=== PATIENT | female | born 1965 | race Caucasian/White ===

== ENCOUNTER 2020-07-03 07:18 | Outpatient (CLI) | payer BC | END 2020-07-03 07:19 | disposition home or self-care (01) | LOC: NM 07:18 | PROVIDERS: ATTEND Student in an Organized Health Care Education/Training Program | DX: R10.11 Right upper quadrant pain (principal) | CPT/HCPCS: 78227; A9537 ==

== ENCOUNTER 2021-09-24 12:02 | Outpatient (CLI) | payer BC | END 2021-09-24 12:03 | disposition home or self-care (01) | LOC: BICMAMMO 12:02 | PROVIDERS: ATTEND Student in an Organized Health Care Education/Training Program | DX: Z12.31 Encounter for screening mammogram for malignant neoplasm of breast (principal); Z80.3 Family history of malignant neoplasm of breast | CPT/HCPCS: 77063; 77067 ==

== ENCOUNTER 2021-11-15 08:51 | Emergency (ER) | payer BC ==
[2021-11-15 09:23] LABS: #Basophils 0.1 thou/uL (0.0-0.2); #Eosinphils 0.1 thou/uL (0.0-0.7); #Lymphocytes 1.4 thou/uL (1.20-3.40); #Monocytes 0.4 thou/uL (0.11-0.59); #Neutrophils 4.2 thou/uL (1.40-6.50); %Basophils 1.3 % (0.0-1.0); %Eosinophils 1.8 % (0.0-10.0); %Lymphocytes 22.9 % (21.0-51.0); %Monocytes 6.2 % (0.0-10.0); %Neutrophils 67.6 % (42.0-75.0); Hemoglobin 11.2 g/dL (12.0-16.0); Mean Corpuscular HGB CONC 33.7 g/dL (32.0-36.0); Mean Corpuscular Hemoglobin 32.6 pg (27.0-31.0); Mean Corpuscular Volume 96.5 fL (78.0-98.0); Mean Platelet Volume 7.1 fL (7.4-10.4); Platelet Count 485 thou/uL (130-400); RBC Distribution Width 11.8 % (11.5-14.5); Red Blood Cell (RBC) Count 3.45 mill/uL (4.20-5.40); White Blood Cell (WBC) Count 6.3 thou/uL (4.8-10.8)
[2021-11-15] MEDS ORDERED: Ondansetron PF 4 MG/2 ML Vial ONE (09:35)
[2021-11-15] MEDS ORDERED: Morphine 4 MG/ML VIAL ONE (09:36)
[2021-11-15 09:42] LABS: ALT (SGPT) 29 U/L (8-55); AST (SGOT) 17 U/L (5-34); Albumin 4.6 g/dL (3.5-5.0); Alkaline Phosphatase 121 U/L (40-110); Anion Gap 19 mmol/L (10-20); BUN (Urea Nitrogen) 23 mg/dL (9.8-20.1); Bilirubin, Total 0.4 mg/dL (0.2-1.2); Calc. Creatinine Clearance 0 mL/min (70-130); Calcium 9.7 mg/dL (7.8-10.44); Carbon Dioxide 24 mmol/L (22-29); Chloride 99 mmol/L (98-107); Estimated GFR 41; Globulin 2.8 g/dL (2.4-3.5); Glucose 100 mg/dL (70-105); Lipase 39 U/L (8-78); Potassium 3.2 mmol/L (3.5-5.1); Protein, Total 7.4 g/dL (6.0-8.3); Sodium 139 mmol/L (136-145)
[2021-11-15] MEDS ORDERED: Iopamidol-370 76% 500 ML 1 ML ONE (11:26)
== END 2021-11-15 12:05 | disposition home or self-care (01) ==
LOC: ERS 08:51
DX: K52.9 Noninfective gastroenteritis and colitis, unspecified (principal); I10 Essential (primary) hypertension
CPT/HCPCS: 36415; 74177; 80053; 83690; 84443; 85025; 96374; 96375; J2270; J2405; Q9967

== ENCOUNTER 2022-01-04 12:06 | Day surgery (SDC) | payer BC ==
[2021-12-31 14:50] VITALS: BMI 21.1
[2022-01-04] MEDS ORDERED: Lidocaine 2% PF 5 ML VIAL ONE (12:37)
[2022-01-04] MEDS ORDERED: Sodium Bicarbonate 2.5 MEQ/5 ML VIAL ONE (12:37)
== END 2022-01-04 13:30 | disposition home or self-care (01) ==
LOC: ULT 12:06
PROVIDERS: ATTEND Otolaryngology Plastic Surgery within the Head & Neck
PROC: 0GBH3ZX Excision of Right Thyroid Gland Lobe, Percutaneous Approach, Diagnostic (ICD-10-PCS; principal; 2022-01-04)
DX: E04.1 Nontoxic single thyroid nodule (principal); D64.9 Anemia, unspecified; I10 Essential (primary) hypertension; Z79.899 Other long term (current) drug therapy
CPT/HCPCS: 10005; 88173; J2001

== ENCOUNTER 2022-02-14 11:11 | Outpatient (CLI) | payer BC | END 2022-02-14 11:12 | disposition home or self-care (01) | LOC: LABBT 11:11 | PROVIDERS: ATTEND Otolaryngology Plastic Surgery within the Head & Neck | DX: Z01.812 Encounter for preprocedural laboratory examination (principal); E04.1 Nontoxic single thyroid nodule | CPT/HCPCS: 85014 ==

== ENCOUNTER 2022-02-16 12:02 | Day surgery (SDC) | payer BC ==
[2022-02-14 15:53] VITALS: BMI 20.9
[2022-02-16] MEDS ORDERED: Propofol 500 MG/50 ML VIAL ONE (12:29)
[2022-02-16] MEDS ORDERED: fentaNYL PF 100 MCG/2 ML SYRINGE ONE ×2 (12:29→13:30)
[2022-02-16] MEDS ORDERED: Lidocaine 1% (PF) 30 ML VIAL ONE (12:33)
[2022-02-16] MEDS ORDERED: EPINEPHrine 1 MG/ML AMP ONE (12:34)
[2022-02-16] MEDS ORDERED: Ondansetron PF 4 MG/2 ML Vial ONE (13:14)
[2022-02-16] MEDS ORDERED: PROPOFOL 200 MG/20 ML VIAL ONE (13:14)
[2022-02-16] MEDS ORDERED: Phenylephrine 10 MG/ML VIAL ONE (13:14)
[2022-02-16] MEDS ORDERED: Dexamethasone 20 MG/5 ML VIAL ONE (13:14)
[2022-02-16] MEDS ORDERED: FENTANYL 50 MCG/ML 1 ML VIAL ONE ×5 (16:02→16:46)
[2022-02-16 16:21] LABS: Hemoglobin 10.8 g/dL (12.0-16.0)
[2022-02-16] MEDS ORDERED: HYDROcodone/Acetaminophen 5/325 mg Tablet ONE (17:35)
== END 2022-02-16 17:50 | disposition home or self-care (01) ==
LOC: SDC 12:02
PROVIDERS: ATTEND Otolaryngology Plastic Surgery within the Head & Neck
PROC: 0GTH0ZZ Resection of Right Thyroid Gland Lobe, Open Approach (ICD-10-PCS; principal; 2022-02-16)
PROC: 0GTJ0ZZ Resection of Thyroid Gland Isthmus, Open Approach (ICD-10-PCS; principal; 2022-02-16)
DX: E04.1 Nontoxic single thyroid nodule (principal); R13.10 Dysphagia, unspecified; I10 Essential (primary) hypertension; Z79.899 Other long term (current) drug therapy
CPT/HCPCS: 36415; 85014; 85018; 88307; C1713; C1776; J0171; J1100; J2001; J2370; J2405; J2704; J3010

== ENCOUNTER 2023-03-05 04:07 | Inpatient (IN) | payer OTHER, BC ==
[2023-03-05] MEDS ORDERED: Ondansetron PF 4 MG/2 ML Vial ONE ×2 (04:15→04:28)
[2023-03-05 04:29] LABS: #Basophils 0.1 thou/uL (0.0-0.2); #Eosinphils 0.1 thou/uL (0.0-0.7); #Monocytes 0.4 thou/uL (0.11-0.59); %Basophils 0.8 % (0.0-1.0); %Eosinophils 1.5 % (0.0-10.0); %Lymphocytes 26.7 % (21.0-51.0); %Monocytes 6.8 % (0.0-10.0); %Neutrophils 61.3 % (42.0-75.0); Hematocrit 39.3 % (36.0-47.0); Hemoglobin 13.2 g/dL (12.0-16.0); Mean Corpuscular HGB CONC 33.6 g/dL (32.0-36.0); Mean Corpuscular Hemoglobin 32.1 pg (27.0-31.0); Mean Corpuscular Volume 95.6 fl (78.0-98.0); Mean Platelet Volume 10.2 fL (7.4-10.4); Platelet Count 270 10x3/uL (130-400); RBC Distribution Width 12.4 % (11.5-14.5); Red Blood Cell (RBC) Count 4.11 mill/uL (4.20-5.40); White Blood Cell (WBC) Count 6.5 10x3/uL (4.8-10.8)
[2023-03-05 04:56] LABS: Acetaminophen Less than 10 mcg/mL (10.0-30.0); Alcohol 222.2 mg/dL (Less than 10); Salicylate Less than 8.0 mg/dL (15.0-30.0)
[2023-03-05] MEDS ORDERED: Metoclopramide HCl 10 MG/2 ML VIAL ONE (05:22)
[2023-03-05 05:27] LABS: AST (SGOT) 86 U/L (5-34); Albumin 4.5 g/dL (3.5-5.0); Anion Gap 20 mmol/L (10-20); BUN (Urea Nitrogen) 7 mg/dL (9.8-20.1); Bilirubin, Total 0.3 mg/dL (0.2-1.2); Calc. Creatinine Clearance 0 mL/min (70-130); Calcium 9.2 mg/dL (7.8-10.44); Carbon Dioxide 17 mmol/L (22-29); Chloride 112 mmol/L (98-107); Estimated GFR 79; Globulin 3.4 g/dL (2.4-3.5); Glucose 115 mg/dL (70-105); Potassium 3.7 mmol/L (3.5-5.1); Protein, Total 7.9 g/dL (6.0-8.3); Sodium 145 mmol/L (136-145)
[2023-03-05] MEDS ORDERED: diphenhydrAMINE 50 MG/ML VIAL ONE (05:43)
[2023-03-05 06:10] LABS: Alkaline Phosphatase 206 U/L (40-110)
[2023-03-05 06:14] LABS: ALT (SGPT) 57 U/L (8-55)
[2023-03-05] MEDS ORDERED: Sodium Chloride 0.9% 1,000 ML IV SCH (06:15)
[2023-03-05] MEDS ORDERED: Ondansetron ODT 4 MG TAB SL PRN (06:15)
[2023-03-05] MEDS ORDERED: Ondansetron PF 4 MG/2 ML Vial IVP PRN (06:15)
[2023-03-05] MEDS ORDERED: Ipratropium/Albuterol 3 ML NEB NEB PRN (06:28)
[2023-03-05] MEDS ORDERED: Dextrose 50% Abboject 50 ML SYRINGE SLOW IVP PRN (06:28)
[2023-03-05] MEDS ORDERED: Glucagon 1 MG/ML KIT IM PRN (06:28)
[2023-03-05] MEDS ORDERED: Dextrose 5% in Water 1,000 ML IV PRN (06:28)
[2023-03-05] MEDS ORDERED: Morphine 2 MG/ML VIAL SLOW IVP PRN (06:28)
[2023-03-05] MEDS ORDERED: Boostrix 0.5 ML (Tdap) VIAL (>/=7 yrs of age) ONE (06:52)
[2023-03-05] MEDS ORDERED: Morphine 4 MG/ML VIAL ONE (06:57)
[2023-03-05] MEDS: Polyethylene Glycol 3350 17 GM Packet PO SCH (09:13)
[2023-03-05] MEDS: Senokot S 8.6-50 MG TAB PO SCH ×2 (09:13→20:52)
[2023-03-05] MEDS: Acetaminophen 325 MG TAB PO SCH ×3 (09:13→17:45)
[2023-03-05] MEDS: Lactated Ringer's 1,000 ML IV SCH ×3 (09:27→20:56)
[2023-03-05] MEDS: Famotidine/PF 20 mg/2ml Vial SLOW IVP SCH ×2 (09:27→20:52)
[2023-03-05] MEDS ORDERED: Iopamidol-370 76% 500 ML MDV (1 ML CHARGE) ONE (09:34)
[2023-03-05 11:15] VITALS: BMI 23.3
[2023-03-05] MEDS: traMADol HCl 50 MG TAB PO SCH ×2 (12:17→17:45)
[2023-03-05 13:42] LABS: Lactic Acid 2.1 mmol/L (0.5-2.2)
[2023-03-06] MEDS: traMADol HCl 50 MG TAB PO SCH ×5 (00:24→23:59)
[2023-03-06] MEDS: Acetaminophen 325 MG TAB PO SCH ×2 (00:25→05:55)
[2023-03-06] MEDS: Lactated Ringer's 1,000 ML IV SCH (00:27)
[2023-03-06 05:40] LABS: #Eosinphils 0.1 thou/uL (0.0-0.7); #Monocytes 0.3 thou/uL (0.11-0.59); #Neutrophils 2.7 thou/uL (1.40-6.50); %Basophils 0.9 % (0.0-1.0); %Eosinophils 1.4 % (0.0-10.0); %Lymphocytes 25.8 % (21.0-51.0); %Monocytes 7.7 % (0.0-10.0); %Neutrophils 63.7 % (42.0-75.0); Mean Corpuscular HGB CONC 33.7 g/dL (32.0-36.0); Mean Corpuscular Hemoglobin 32.4 pg (27.0-31.0); Mean Corpuscular Volume 96.2 fl (78.0-98.0); Mean Platelet Volume 10.3 fL (7.4-10.4); Platelet Count 162 10x3/uL (130-400); RBC Distribution Width 12.7 % (11.5-14.5); Red Blood Cell (RBC) Count 2.93 mill/uL (4.20-5.40); White Blood Cell (WBC) Count 4.3 10x3/uL (4.8-10.8)
[2023-03-06 05:57] LABS: Hematocrit 28.2 % (36.0-47.0); Hemoglobin 9.5 g/dL (12.0-16.0)
[2023-03-06 06:05] LABS: Prothrombin Time 13.2 sec (12.0-14.7)
[2023-03-06 06:06] LABS: PTT 23.3 sec (22.9-36.1)
[2023-03-06 06:10] LABS: Anion Gap 12 mmol/L (10-20); BUN (Urea Nitrogen) 7 mg/dL (9.8-20.1); Calc. Creatinine Clearance 91 mL/min (70-130); Carbon Dioxide 23 mmol/L (22-29); Chloride 105 mmol/L (98-107); Estimated GFR 100; Glucose 94 mg/dL (70-105); Potassium 3.2 mmol/L (3.5-5.1); Sodium 137 mmol/L (136-145)
[2023-03-06] MEDS: Senokot S 8.6-50 MG TAB PO SCH ×2 (08:19→20:25)
[2023-03-06] MEDS: Polyethylene Glycol 3350 17 GM Packet PO SCH (08:19)
[2023-03-06] MEDS: Famotidine/PF 20 mg/2ml Vial SLOW IVP SCH ×2 (08:20→20:25)
[2023-03-06] MEDS: Potassium Chloride 20 MEQ in Premix 1 BAG IVPB SCH ×2 (11:26→15:33)
[2023-03-06] MEDS ORDERED: Ropivacaine 0.5% HCl/PF (150 MG/30 ML VIAL) ONE (12:20)
[2023-03-06] MEDS ORDERED: fentaNYL 50 mcg/mL 1 mL Vial ONE (12:20)
[2023-03-06] MEDS ORDERED: Midazolam HCl 2 mg/2 ml Vial ONE (12:20)
[2023-03-06] MEDS ORDERED: Sodium Chloride 0.9% 100 ML ONE (12:44)
[2023-03-06] MEDS ORDERED: CEFAZOLIN 2 GM VIAL ONE (12:44)
[2023-03-06] MEDS ORDERED: PROPOFOL 40 ML ONE (12:49)
[2023-03-06] MEDS ORDERED: fentaNYL PF 100 MCG/2 ML SYRINGE ONE (12:49)
[2023-03-06] MEDS ORDERED: Ondansetron PF 4 MG/2 ML Vial ONE ×2 (12:50→13:07)
[2023-03-06] MEDS ORDERED: PROPOFOL 200 MG/20 ML VIAL ONE (12:50)
[2023-03-06] MEDS ORDERED: Dexamethasone 20 MG/5 ML VIAL ONE (12:50)
[2023-03-06] MEDS ORDERED: Lidocaine 1% PF 5 ML VIAL ONE (12:50)
[2023-03-06] MEDS ORDERED: Ketorolac Tromethamine 30 MG/ML VIAL ONE (13:07)
[2023-03-06] MEDS ORDERED: Dexamethasone 4 mg/ml Vial ONE (13:07)
[2023-03-06] MEDS ORDERED: Labetalol HCl 100 MG/20 ML VIAL ONE (14:25)
[2023-03-06] MEDS ORDERED: hydrALAZINE 20 MG/ML VIAL ONE (15:05)
[2023-03-07] MEDS: Cyclobenzaprine 10 MG TAB PO PRN ×2 (03:44→22:09)
[2023-03-07] MEDS: Acetaminophen 500 MG TAB PO PRN ×3 (03:45→22:08)
[2023-03-07] MEDS: traMADol HCl 50 MG TAB PO SCH ×3 (06:30→17:25)
[2023-03-07 07:46] LABS: #Monocytes 0.5 thou/uL (0.11-0.59); #Neutrophils 5.1 thou/uL (1.40-6.50); %Basophils 0.4 % (0.0-1.0); %Eosinophils 0.1 % (0.0-10.0); %Lymphocytes 15.2 % (21.0-51.0); %Neutrophils 75.9 % (42.0-75.0); Hematocrit 26.2 % (36.0-47.0); Hemoglobin 9.4 g/dL (12.0-16.0); Mean Corpuscular HGB CONC 35.9 g/dL (32.0-36.0); Mean Corpuscular Hemoglobin 36.4 pg (27.0-31.0); Mean Corpuscular Volume 101.6 fl (78.0-98.0); Mean Platelet Volume 10.7 fL (7.4-10.4); Platelet Count 186 10x3/uL (130-400); RBC Distribution Width 12.4 % (11.5-14.5); Red Blood Cell (RBC) Count 2.58 mill/uL (4.20-5.40); White Blood Cell (WBC) Count 6.8 10x3/uL (4.8-10.8)
[2023-03-07] MEDS: Famotidine/PF 20 mg/2ml Vial SLOW IVP SCH ×2 (07:59→22:08)
[2023-03-07] MEDS: Senokot S 8.6-50 MG TAB PO SCH ×2 (07:59→22:08)
[2023-03-07] MEDS: Polyethylene Glycol 3350 17 GM Packet PO SCH (07:59)
[2023-03-07 08:07] LABS: ALT (SGPT) 25 U/L (8-55); AST (SGOT) 29 U/L (5-34); Albumin 3.4 g/dL (3.5-5.0); Alkaline Phosphatase 191 U/L (40-110); Anion Gap 13 mmol/L (10-20); BUN (Urea Nitrogen) 6 mg/dL (9.8-20.1); Bilirubin, Total 0.6 mg/dL (0.2-1.2); Calc. Creatinine Clearance 87 mL/min (70-130); Calcium 8.3 mg/dL (7.8-10.44); Carbon Dioxide 25 mmol/L (22-29); Chloride 103 mmol/L (98-107); Estimated GFR 96; Glucose 114 mg/dL (70-105); Magnesium 1.6 mg/dL (1.6-2.6); Phosphorus 3.1 mg/dL (2.3-4.7); Potassium 3.3 mmol/L (3.5-5.1); Protein, Total 6.4 g/dL (6.0-8.3); Sodium 138 mmol/L (136-145)
[2023-03-07] MEDS: traMADol HCl 50 MG TAB PO PRN (09:24)
[2023-03-08] MEDS: traMADol HCl 50 MG TAB PO SCH ×3 (00:34→11:36)
[2023-03-08] MEDS: traMADol HCl 50 MG TAB PO PRN (06:33)
[2023-03-08] MEDS: Polyethylene Glycol 3350 17 GM Packet PO SCH (08:22)
[2023-03-08] MEDS: Famotidine/PF 20 mg/2ml Vial SLOW IVP SCH (08:22)
[2023-03-08] MEDS: Senokot S 8.6-50 MG TAB PO SCH (08:22)
[2023-03-08 15:48] VITALS: BP 137/77; TEMP 97.7
== END 2023-03-08 17:10 | disposition home or self-care (01) | DRG 511 ==
LOC: ERS 04:07 → SURG A 08:28
PROVIDERS: ADMIT Specialist; ATTEND Specialist
PROC: 0PSJ04Z Reposition Left Radius with Internal Fixation Device, Open Approach (ICD-10-PCS; principal; 2023-03-06)
PROC: 0PSQXZZ Reposition Left Metacarpal, External Approach (ICD-10-PCS; 2023-03-06)
DX: S52.502A Unspecified fracture of the lower end of left radius, initial encounter for closed fracture (principal); S32.018A Other fracture of first lumbar vertebra, initial encounter for closed fracture; S32.038A Other fracture of third lumbar vertebra, initial encounter for closed fracture; S32.048A Other fracture of fourth lumbar vertebra, initial encounter for closed fracture; S32.058A Other fracture of fifth lumbar vertebra, initial encounter for closed fracture; F10.129 Alcohol abuse with intoxication, unspecified; I10 Essential (primary) hypertension; S52.612A Displaced fracture of left ulna styloid process, initial encounter for closed fracture; S62.307A Unspecified fracture of fifth metacarpal bone, left hand, initial encounter for closed fracture; V89.2XXA Person injured in unspecified motor-vehicle accident, traffic, initial encounter
CPT/HCPCS: 25600; 36415; 70450; 70486; 71045; 71260; 72125; 72170; 74177; 80048; 80053; 80307; 83605; 83735; 84100; 85025; 85610; 85730; 86850; 86900; 86901; 90471; 90715; 94002; 94760; 96361; 96374; 96375; C1713; G0390; J0360; J1100; J1200; J1885; J2250; J2270; J2272; J2405; J2704; J2765; J2795; J3010; J3480; J3490; J7120; Q9967; S0028

== ENCOUNTER 2023-03-29 15:19 | Outpatient (CLI) | payer BC | END 2023-03-29 15:20 | disposition home or self-care (01) | LOC: BICULT 15:19 | PROVIDERS: ATTEND Otolaryngology Plastic Surgery within the Head & Neck | DX: E04.1 Nontoxic single thyroid nodule (principal) | CPT/HCPCS: 76536 ==

== ENCOUNTER 2023-05-16 16:17 | Outpatient (CLI) | payer BC | END 2023-05-16 16:18 | disposition home or self-care (01) | LOC: BICRAD 16:17 | PROVIDERS: ATTEND Neurological Surgery | DX: S22.009A Unspecified fracture of unspecified thoracic vertebra, initial encounter for closed fracture (principal); S32.009A Unspecified fracture of unspecified lumbar vertebra, initial encounter for closed fracture; S24.101A Unspecified injury at T1 level of thoracic spinal cord, initial encounter; S24.102A Unspecified injury at T2-T6 level of thoracic spinal cord, initial encounter; S32.029A Unspecified fracture of second lumbar vertebra, initial encounter for closed fracture | CPT/HCPCS: 72070; 72100 ==